=== PATIENT | male | born 1985 | race Caucasian/White ===

== ENCOUNTER 2021-06-29 09:54 | Emergency (ER) | payer BC, SELFPAY ==
[2021-06-29 09:59] VITALS: BP 168/89; PULSE 76; RESP 18; TEMP 36.4; O2SAT 100
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
[2021-06-29 11:32] LABS: Hepatitis B Surface Antigen Negative (Negative)
[2021-06-29 11:49] LABS: Hepatitis B Surface Anti Res Negative; Hepatitis C Virus Antibody Negative (Negative)
[2021-06-29 13:57] VITALS: BP 130/76; PULSE 84; RESP 16; O2SAT 99
[2021-07-02 04:05] LABS: HIV 1 RNA PCR Not Detected Copies/mL; HIV 1 RNA PCR Not Detected Log cps/mL
[2021-07-03 02:33] LABS: Hepatitis B Core Ab Total Nonreactive (Nonreactive)
== END 2021-06-29 13:59 | disposition home or self-care (01) ==
PROVIDERS: Physician Assistant; Emergency Provider Emergency Medicine
DX: Z77.21 Contact with and (suspected) exposure to potentially hazardous body fluids (principal)
CPT/HCPCS: 36415; 86704; 86706; 86803; 87340; 87536; 99283